=== PATIENT | female | born 1990 | race Caucasian/White ===

== ENCOUNTER 2020-03-08 09:18 | Emergency (ER) | payer MEDICAID ==
[~2020-03-08] VITALS: Ht 157.5 cm; Wt 53.5 kg
--- NOTE | 2020-03-08 09:20 | NUR ---
Moises abreuletha in [facility] - 03/08/20 at 1012 by [email or web address] Esther Zapata assessing patient in the [facility]
[2020-03-08 09:34] VITALS: BP_SYST 112
--- NOTE | 2020-03-08 10:15 | NUR ---
per ed admitting, pt left without being seen
--- NOTE | 2020-03-08 10:37 | NUR ---
Note nikki in EDM - 03/08/20 at 1037 by [email or web address] per ed admitting, pt left without being seen
== END 2020-03-08 10:15 | disposition left against medical advice (07) ==
LOC: SED 09:18
DX: R19.7 Diarrhea, unspecified (principal); M79.18 Myalgia, other site; Z53.21 Procedure and treatment not carried out due to patient leaving prior to being seen by health care provider